=== PATIENT | female | born 1950 | race Hispanic/Latino ===

== ENCOUNTER → 2018-03-14 | Outpatient (CLI) | payer OTHER ==
[~2018-03-14] MED LIST: HYDR-4457 PO; LEVO50 PO
== END | disposition home or self-care (01) ==
LOC: RAH 09:53
DX: Z12.31 Encounter for screening mammogram for malignant neoplasm of breast (principal)
CPT/HCPCS: 77067

== ENCOUNTER 2018-06-13 06:27 | Inpatient (IN) | payer OTHER | END 2018-06-15 18:56 | disposition home health service (06) | LOC: DAHIP 06:27 → 4AH 12:02 | PROC: 0SRC0JZ Replacement of Right Knee Joint with Synthetic Substitute, Open Approach (ICD-10-PCS; principal; 2018-06-13 08:30) | DX: M17.11 Unilateral primary osteoarthritis, right knee (principal) ==

== ENCOUNTER → 2019-03-20 | Outpatient (CLI) | payer OTHER ==
[~2019-03-20] MED LIST changes: +ASPI-1012 PO; -LEVO50 PO; +LEVO75TA10 PO; +MONT10TA21 PO
== END | disposition home or self-care (01) ==
LOC: RAH 13:44
PROVIDERS: ATTEND Obstetrics & Gynecology
DX: Z12.31 Encounter for screening mammogram for malignant neoplasm of breast (principal)
CPT/HCPCS: 77067

== ENCOUNTER → 2019-08-16 | Outpatient (CLI) | payer OTHER | END | disposition home or self-care (01) | LOC: RAH 14:12 | PROVIDERS: ATTEND Family Medicine | DX: Z13.6 Encounter for screening for cardiovascular disorders (principal) | CPT/HCPCS: 75571 ==

== ENCOUNTER → 2020-03-20 | Outpatient (CLI) | payer OTHER | END | disposition home or self-care (01) | LOC: RAH 09:52 | PROVIDERS: ATTEND Obstetrics & Gynecology | DX: Z12.31 Encounter for screening mammogram for malignant neoplasm of breast (principal); N64.89 Other specified disorders of breast | CPT/HCPCS: 77067 ==

== ENCOUNTER → 2022-03-10 | Outpatient (CLI) | payer MEDICARE | END | disposition home or self-care (01) | LOC: RAH 10:26 | PROVIDERS: ATTEND Obstetrics & Gynecology | DX: Z12.31 Encounter for screening mammogram for malignant neoplasm of breast (principal) | CPT/HCPCS: 77067 ==

== ENCOUNTER → 2023-03-14 | Outpatient (CLI) | payer MEDICARE ==
[~2023-03-14] MED LIST changes: +MONT-46 PO; -MONT10TA21 PO
== END | disposition home or self-care (01) ==
LOC: RAH 15:38
PROVIDERS: ATTEND Obstetrics & Gynecology
DX: Z12.31 Encounter for screening mammogram for malignant neoplasm of breast (principal)
CPT/HCPCS: 77067

== ENCOUNTER 2023-04-21 11:22 | Observation (INO) | payer MEDICARE ==
[~2023-04-21] VITALS: Ht 154.9 cm; Wt 63.5 kg
[2023-04-21 12:00] LABS: BASOPHILS % (AUTO) 0.6 % (0.0-5.0); EOSINOPHILS # (AUTO) 3.56 K/uL (0.00-0.70); EOSINOPHILS % (AUTO) 22.5 % (0.0-8.0); IMMATURE GRANULOCYTE ABSOLUTE 0.09 K/uL (0-1); LYMPHOCYTES # (AUTO) 2.4 K/uL (1.0-4.8); MEAN CORPUSCULAR HEMOGLOBIN 30.8 pg (27.0-33.0); MEAN CORPUSCULAR VOLUME 90.7 fL (79-99); MONOCYTES # (AUTO) 0.9 K/uL (0.1-1.0); MONOCYTES % (AUTO) 5.7 % (3.0-13.0); NEUTROPHILS # (AUTO) 8.8 K/uL (1.8-7.7); NEUTROPHILS % (AUTO) 55.6 % (40.0-77.0); PLATELET COUNT (AUTO) 219 K/uL (130-400); RED BLOOD CELL COUNT(AUTO) 4.74 MIL/uL (4.00-5.50); RED CELL DISTRIBUTION WIDTH 13.8 % (11.0-15.5); WHITE BLOOD COUNT (AUTO) 15.9 K/uL (4.8-10.8)
[2023-04-21 12:12] LABS: CREATININE 0.9 mg/dL (0.5-1.5); POTASSIUM 3.4 mmol/L (3.5-5.1)
[2023-04-21 12:16] LABS: ALBUMIN 3.3 g/dL (3.5-5.0); BILIRUBIN,TOTAL 0.3 mg/dL (0.2-1.0); TOTAL PROTEIN, SERUM 7.2 g/dL (6.0-8.3)
[2023-04-21 14:32] LABS: ADD UA MICROSCOPIC YES; APPEARANCE,URINE CLEAR (CLEAR); BILIRUBIN,URINE NEGATIVE (NEGATIVE); COLOR,URINE LIGHT-YELLOW (YELLOW); GLUCOSE, URINE (UA) NEGATIVE (NEGATIVE); KETONES,URINE NEGATIVE (NEGATIVE); LEUKOCYTE ESTERASE ,URINE NEGATIVE Leu/uL (NEGATIVE); NITRATE,URINE NEGATIVE (NEGATIVE); OCCULT BLOOD,URINE NEGATIVE (NEGATIVE); PH,URINE 6.5 (5.0-8.0); PROTEIN,URINE NEGATIVE (NEGATIVE); UROBILINOGEN,URINE 0.2 mg/dL (0.2-1.0)
[2023-04-21 14:34] LABS: BACTERIA,URINE RARE /HPF (None Seen); MUCUS,URINE RARE LPF (None Seen); RBC,URINE 0-1 /HPF (0-1); SQUAMOUS EPITHELIAL CELL,UR FEW /HPF (0-2); YEAST,URINE BUDDING RARE /HPF (None Seen)
[2023-04-21] MEDS ORDERED: KCL 20 MEQ ERTAB PO ONE ×2 (14:59→15:02)
[2023-04-21] MEDS ORDERED: MAG/ALUM/SIMETH 30 ML UDCUP PO PRN (16:00)
[2023-04-21] MEDS ORDERED: GUAIFENESIN-DM 200/20 MG 10 ML PO PRN (16:00)
[2023-04-21] MEDS ORDERED: DIPHENHYDRAMINE HCL 25 MG CAPSULE PO PRN (16:00)
[2023-04-21] MEDS ORDERED: KCL 20 MEQ ERTAB PO PRN (16:00)
[2023-04-21] MEDS ORDERED: MAGNESIUM 2GM PREMIX 50ML 50 ML IV PRN (16:00)
[2023-04-21] MEDS ORDERED: POTASSIUM CHLORIDE 10% ELIXIR 20 MEQ/15 ML UDCUP PO PRN (16:00)
[2023-04-21] MEDS ORDERED: ACETAMINOPHEN 325 MG TAB PO PRN ×2 (16:00)
[2023-04-21] MEDS ORDERED: NITROGLYCERIN 0.4 MG SL TAB SL PRN (16:00)
[2023-04-21] MEDS ORDERED: POTASSIUM CHLORIDE 20MEQ/100ML 100 ML IV PRN (16:00)
[2023-04-21] MEDS ORDERED: HYDROMORPHONE 1 MG INJ IV PRN (16:00)
[2023-04-21] MEDS ORDERED: ONDANSETRON 4MG INJ IV PRN (16:00)
[2023-04-21] MEDS ORDERED: HYDROCODONE/ACETAMINOPHEN 5/325 MG TAB PO PRN ×2 (16:00)
[2023-04-21] MEDS ORDERED: DiphenhydrAMINE HCL 50 MG/ML VIAL IV PRN (16:00)
[2023-04-21] MEDS ORDERED: LACTULOSE 20 GM/30 ML UDCUP PO PRN (16:00)
[2023-04-21] MEDS: LACTATED RINGERS 1000ML 1,000 ML IV SCH ×2 (16:33→22:35)
[2023-04-21 20:00] VITALS: BP 154/73; PULSE 61; RESP 18
[2023-04-21] MEDS: ZOSYN 3.375GM+NS 50ML 50 ML IV SCH (20:59)
[2023-04-21] MEDS: PANTOPRAZOLE 40 MG/VIAL IVP SCH (20:59)
[2023-04-21 21:00] VITALS: O2SAT 97
[2023-04-21] MEDS ORDERED: SUCR1TAB2 PO (21:12)
[2023-04-21] MEDS ORDERED: FAMO20TA8 PO (21:12)
[2023-04-22] VITALS (7 sets, daily range): BP systolic 131–160; BP diastolic 64–87; PULSE 51–60; RESP 16–20; O2SAT 96
[2023-04-22] MEDS: LACTATED RINGERS 1000ML 1,000 ML IV SCH ×7 (00:23→20:21)
[2023-04-22 04:42] LABS: BASOPHILS % (AUTO) 0.8 % (0.0-5.0); EOSINOPHILS # (AUTO) 3.81 K/uL (0.00-0.70); EOSINOPHILS % (AUTO) 30.8 % (0.0-8.0); HEMATOCRIT 37.7 % (36-48); IMMATURE GRANULOCYTE ABSOLUTE 0.05 K/uL (0-1); LYMPHOCYTES # (AUTO) 2.3 K/uL (1.0-4.8); LYMPHOCYTES % (AUTO) 18.2 % (21.0-51.0); MEAN CORPUSCULAR HEMOGLOBIN 30.9 pg (27.0-33.0); MEAN CORPUSCULAR HGB CONC 34.2 g/dL (32.0-36.0); MEAN CORPUSCULAR VOLUME 90.4 fL (79-99); MONOCYTES # (AUTO) 0.9 K/uL (0.1-1.0); NEUTROPHILS # (AUTO) 5.3 K/uL (1.8-7.7); NEUTROPHILS % (AUTO) 42.8 % (40.0-77.0); PLATELET COUNT (AUTO) 201 K/uL (130-400); RED BLOOD CELL COUNT(AUTO) 4.17 MIL/uL (4.00-5.50); RED CELL DISTRIBUTION WIDTH 14.1 % (11.0-15.5); WHITE BLOOD COUNT (AUTO) 12.4 K/uL (4.8-10.8)
[2023-04-22 04:51] LABS: HEMOGLOBIN A1C 5.7 % (4.0-6.0)
[2023-04-22 04:55] LABS: INR < 0.93 (0.85-1.15); PROTHROMBIN TIME 10.7 SEC (9.6-11.6)
[2023-04-22] MEDS: ZOSYN 3.375GM+NS 50ML 50 ML IV SCH ×3 (04:55→20:14)
[2023-04-22 04:57] LABS: PARTIAL THROMBOPLASTIN TIME 29.3 SEC (26.3-35.5)
[2023-04-22 05:06] LABS: ALBUMIN 2.7 g/dL (3.5-5.0); BILIRUBIN,TOTAL 0.7 mg/dL (0.2-1.0); CREATININE 0.9 mg/dL (0.5-1.5); MAGNESIUM 2.5 mg/dL (1.80-2.40); PHOSPHORUS 3.8 mg/dL (2.5-4.9); POTASSIUM 3.9 mmol/L (3.5-5.1); THYROID STIMULATING HORMONE 5.04 uIU/mL (0.36-3.74)
[2023-04-22 05:11] LABS: % IRON SATURATION 44.1 % (22-44)
[2023-04-22 05:37] LABS: HIV 1&2 ANTIBODY Non-Reactive (Negative); HIV-1 p24 Antigen Non-Reactive (Negative)
[2023-04-22] MEDS: LEVOTHYROXINE 75 MCG TABLET PO SCH (05:55)
[2023-04-22] MEDS ORDERED: KCL 20 MEQ ERTAB PO SCH (09:00)
[2023-04-22] MEDS: MONTELUKAST SODIUM 10 MG TAB PO SCH (09:00)
[2023-04-22] MEDS: PANTOPRAZOLE 40 MG/VIAL IVP SCH ×2 (09:04→20:14)
[2023-04-23] VITALS: BP 134/72; PULSE 55; RESP 16
[2023-04-23] MEDS: LACTATED RINGERS 1000ML 1,000 ML IV SCH (02:31)
[2023-04-23 04:00] VITALS: BP 120/72; PULSE 50; RESP 18
[2023-04-23 04:57] LABS: BASOPHILS % (AUTO) 0.9 % (0.0-5.0); EOSINOPHILS # (AUTO) 4.19 K/uL (0.00-0.70); EOSINOPHILS % (AUTO) 38.2 % (0.0-8.0); HEMATOCRIT 36.9 % (36-48); IMMATURE GRANULOCYTE ABSOLUTE 0.02 K/uL (0-1); LYMPHOCYTES # (AUTO) 2.1 K/uL (1.0-4.8); LYMPHOCYTES % (AUTO) 18.7 % (21.0-51.0); MEAN CORPUSCULAR HEMOGLOBIN 30.4 pg (27.0-33.0); MEAN CORPUSCULAR HGB CONC 33.3 g/dL (32.0-36.0); MEAN CORPUSCULAR VOLUME 91.1 fL (79-99); MONOCYTES # (AUTO) 0.7 K/uL (0.1-1.0); MONOCYTES % (AUTO) 6.7 % (3.0-13.0); NEUTROPHILS # (AUTO) 3.9 K/uL (1.8-7.7); NEUTROPHILS % (AUTO) 35.3 % (40.0-77.0); PLATELET COUNT (AUTO) 173 K/uL (130-400); RED BLOOD CELL COUNT(AUTO) 4.05 MIL/uL (4.00-5.50); RED CELL DISTRIBUTION WIDTH 14.1 % (11.0-15.5)
[2023-04-23] MEDS: ZOSYN 3.375GM+NS 50ML 50 ML IV SCH (05:00)
[2023-04-23 05:32] LABS: ALBUMIN 2.5 g/dL (3.5-5.0); BILIRUBIN,TOTAL 0.7 mg/dL (0.2-1.0); CREATININE 0.9 mg/dL (0.5-1.5); MAGNESIUM 1.8 mg/dL (1.80-2.40); POTASSIUM 3.9 mmol/L (3.5-5.1); TOTAL PROTEIN, SERUM 5.7 g/dL (6.0-8.3)
[2023-04-23] MEDS: LEVOTHYROXINE 75 MCG TABLET PO SCH (07:31)
[2023-04-23 07:34] VITALS: BP 133/76; PULSE 53; RESP 18
[2023-04-23] MEDS: MONTELUKAST SODIUM 10 MG TAB PO SCH (09:00)
[2023-04-23] MEDS: PANTOPRAZOLE 40 MG/VIAL IVP SCH (09:00)
[2023-04-23 09:50] VITALS: O2SAT 99
== END 2023-04-23 12:20 | disposition home or self-care (01) ==
LOC: EDH 11:22 → EDHIP 15:55 → 3BH 16:32
PROVIDERS: ADMIT Internal Medicine; ATTEND Internal Medicine
DX: K21.9 Gastro-esophageal reflux disease without esophagitis (principal); K22.10 Ulcer of esophagus without bleeding; E44.1 Mild protein-calorie malnutrition; I44.4 Left anterior fascicular block; K85.90 Acute pancreatitis without necrosis or infection, unspecified; E03.9 Hypothyroidism, unspecified; Z68.26 Body mass index [BMI] 26.0-26.9, adult; Z90.49 Acquired absence of other specified parts of digestive tract; Z96.659 Presence of unspecified artificial knee joint
CPT/HCPCS: 96361 ×4; 96365; 96366 ×4; 96375; 99284; 84484; 84478; 80053 ×3; 83690 ×2; 85025 ×3; 87040 ×2; 81001; 36415 ×3; 76700; 93005; 96376; 83036; 84443; 83540; 83550; 83735 ×2; 84100; 85610; 85730; 83605; 86701; 87390; 74150; G0378 ×44; J7120 ×3; J2543 ×5; C9113 ×3

== ENCOUNTER → 2024-04-02 | Outpatient (CLI) | payer MEDICARE ==
[~2024-04-02] MED LIST changes: +FAMO20TA8 PO; +SUCR1TAB2 PO
--- NOTE | 2024-04-02 11:15 | HMCIMG ---
MAMMO SCREENING BILATERAL HISTORY: Screening mammogram. COMPARISON: 03/14/2023 TECHNIQUE: Bilateral screening mammogram with CAD was performed with craniocaudal and mediolateral oblique projections. FINDINGS: There are scattered areas of fibroglandular density. There is no evidence of a dominant mass, or suspicious microcalcification. There is no evidence of nipple retraction or skin thickening. IMPRESSION: 1. Stable mammogram. Patient was entered into a reminder system with a target due date for their next mammogram. BI-RADS: CATEGORY 2: BENIGN FINDINGS Recommend monthly self breast exam as well as annual clinical examination. A negative x-ray should not delay biopsy if a dominant or clinically suspicious mass is present, since 8-10% of cancers are not identified by mammography. Dense breasts particularly, may obscure an underlying neoplasm. Some of these may be detected clinically and therefore, clinical examination is an essential part of breast evaluation.
== END | disposition home or self-care (01) ==
LOC: RAH 10:36
PROVIDERS: ATTEND Obstetrics & Gynecology
DX: Z12.31 Encounter for screening mammogram for malignant neoplasm of breast (principal); R92.323 Mammographic fibroglandular density, bilateral breasts
CPT/HCPCS: 77067

== ENCOUNTER 2024-09-09 16:05 | Emergency (ER) | payer MEDICARE, OTHER ==
[~2024-09-09] VITALS: Ht 154.9 cm; Wt 67.1 kg
[2024-09-09] MEDS: ondanSETRON 4MG TABLET PO ONE (16:48)
[2024-09-09] MEDS: morPHINE 2 MG SYG IM ONE (16:49)
--- NOTE | 2024-09-09 17:18 | HMCIMG ---
RIGHT ELBOW RADIOGRAPHS - 3 VIEWS INDICATION: Pain COMPARISON: None FINDINGS/IMPRESSION: AP, lateral, and oblique views. Posterior right elbow fracture dislocation injury, including radial head/neck fracture and displaced comminuted fracture involving the lateral humeral epicondyles with a few miniscule joint fragments.
--- NOTE | 2024-09-09 17:19 | HMCIMG ---
NASAL BONES RADIOGRAPHS - 3 VIEWS INDICATION: Fall COMPARISON: None FINDINGS: No acute fracture or dislocation noted. Nasal septum is midline. Orbital dubose are symmetric and intact. Visible paranasal sinuses and mastoid air cells are clear. IMPRESSION: No fracture or dislocation noted.
--- NOTE | 2024-09-09 17:23 | HMCIMG ---
CT HEAD WITHOUT CONTRAST INDICATION: Fall TECHNIQUE: Noncontrast axial helical CT images from the vertex through the skull base using 5 mm slice thickness without contrast material. Coronal and sagittal reconstructions were also included. Dose reduction techniques was used using integrated, automated and adaptive dose reduction exposure control. CT was performed with one or more of the following dose reduction techniques: Automated exposure control, adjustment of the mA and/or kV according to patient size, or use of iterative reconstruction technique. COMPARISON: None FINDINGS: Very small anterior right frontal scalp hematoma. Scattered and coalescent subcortical and periventricular white matter low attenuating areas likely represent residual of chronic small vessel arteriopathy and/or remote vascular insult. Generalized mild cerebral cortical atrophy is present.. No evidence for abnormal extra-axial fluid collections or masses. The ventricles and sulci are normal in size and configuration. No evidence for intracranial parenchymal, epidural, or subdural hemorrhage, mass effect or midline shift. The mars-white matter differentiation is well preserved. No secondary evidence to suggest acute ischemia. Mild calcific plaque is present along the dubose of the cavernous segments of both internal carotid arteries. The brainstem and cerebellum appear normal. The visualized orbits appear unremarkable. The visible paranasal sinuses and mastoid air cells are clear. The calvarium appears normal. IMPRESSION: Very small anterior right frontal scalp hematoma. Chronic white matter ischemic changes, mild brain atrophy, and arteriosclerotic disease as described, without acute component.
--- NOTE | 2024-09-09 17:56 | ERN ---
General Chief Complaint: Mechanical Fall Stated Complaint: FALL, ELBOW PAIN Time Seen by MD: 16:07 Source: patient History of Present Illness Initial Comments Patient is a 73-year-old female coming in after she had a fall earlier today. She states he was bumped herself in the head and elbow.She states she can not extend per upper extremity secondary to she was a excruciating elbow pain she Allergies: Coded Allergies: No Known Drug Allergies (Unverified Allergy, Unknown, 11/21/14) Home Meds Active Scripts Hydrocodone/Acetaminophen ([place] 5-325 Tablet) 1 Each Tablet, 1-2 EACH PO Q6HPRN PRN for pain, #60 TAB Prov:MADONNA MORA MD 06/15/18 Aspirin (ASPIRIN) 325 Mg Tablet, 325 MG PO BID, #40 TAB Prov:MADONNA MORA MD 06/15/18 Reported Medications Famotidine (Famotidine) 20 Mg Tablet, 20 MG PO BID, TAB 04/21/23 Sucralfate (Sucralfate) 1 Gram Tablet, 1 GM PO QID, TAB 04/21/23 Montelukast Sodium (Singulair 10Mg) 10 Mg Tab, 10 MG PO QDP, TAB 06/12/18 Levothyroxine Sodium (Levothyroxine Sodium) 75 Mcg Tablet, 75 MCG PO ACBKFST, TAB 06/12/18 Past Medical History Past Medical History: GERD, Hypothyroid Medical History Other: ESOPHAGITIS Past Surgical History: Cholecystectomy, Surgical History Other: KNEE REPLACEMENT, HERNIA REPAIR ROS Dictation CONSTITUTIONAL: No chills, no fever, no weakness, no diaphoresis, no malaise. HEAD/FACE: No signs of trauma. EENT: No eye pain, no blurred vision, no tearing, no double vision, no ear pain, no ear discharge, no nose pain, no nasal congestion, no throat pain, no throat swelling, no mouth pain. RESPIRATORY: No cough, no orthopnea, no SOB, no stridor, no wheezing. CARDIOVASCULAR: No chest pain, no edema, no palpitations, no syncope. GASTROINTESTINAL/ABDOMINAL: No abdominal pain, no constipation, no diarrhea, no nausea, no vomiting. GENITOURINARY: No abnormal discharge, no dysuria, no frequent urination, no hematuria. No complaints of pain in the genitals. MUSCULOSKELETAL: No back pain, no gout, joint pain, joint swelling, no muscle pain, no muscle stiffness, no neck pain. INTEGUMENTARY: No change in color, no change in hair/nails, no dryness, no lesion, no lumps, no rash. NEUROLOGICAL/PSYCH: No anxiety, not depressed, no emotional problem, no headache, no numbness, no pre-existing deficit, no history of seizures, no tremors, no weakness. HEMATOLOGIC/LYMPHATIC: Not anemic, no history of blood clots, no apparent bleeding, no bruising, glands not swollen. All Systems Negative, Except as Noted. Results Laboratory and Microbiology Labs Reviewed?: Yes EKG/XRAY/US/CT/MRI X-RAY Comment IMAGING REPORT Signed PATIENT: IDALIA GARCIA MR#: [id number] : 1950 SEX: F AGE: 73 LOCATION: [facility] ORDER 15 STATUS: [facility] REPORT#: [id number] SERVICE 13 REASON: fall ORDERING PHYSICIAN: NEEL VO MD PROCEDURE: NASAL 3VW - NASAL BONES COMP 3+VWS NASAL BONES RADIOGRAPHS - 3 VIEWS INDICATION: Fall COMPARISON: None FINDINGS: No acute fracture or dislocation noted. Nasal septum is midline. Orbital dubose are symmetric and intact. Visible paranasal sinuses and mastoid air cells are clear. IMPRESSION: No fracture or dislocation noted. DICTATED BY: JOSELYN EDMONDS MD DATE: 09/09/241715 ELECTRONICALLY SIGNED BY: JOSELYN EDMONDS MD DATE: 09/09/241718 [address] [id number] IMAGING REPORT Signed PATIENT: IDALIA GARCIA MR#: [id number] : 1950 SEX: F AGE: 73 LOCATION: [facility] ORDER 15 STATUS: [facility] REPORT#: [id number] SERVICE 13 REASON: fall ORDERING PHYSICIAN: NEEL VO MD PROCEDURE: ELB3VW RT - ELBOW COMP 3+VWS RT RIGHT ELBOW RADIOGRAPHS - 3 VIEWS INDICATION: Pain COMPARISON: None FINDINGS/IMPRESSION: AP, lateral, and oblique views. Posterior right elbow fracture dislocation injury, including radial head/neck fracture and displaced comminuted fracture involving the lateral humeral epicondyles with a few miniscule joint fragments. DICTATED BY: JOSELYN EDMONDS MD DATE: 09/09/241715 ELECTRONICALLY SIGNED BY: JOSELYN EDMONDS MD DATE: 09/09/241717 CT Scan Comment [address] [place] [id number] IMAGING REPORT Signed PATIENT: IDALIA GARCIA MR#: [id number] : 1950 SEX: F AGE: 73 LOCATION: [facility] ORDER 15 STATUS: [facility] REPORT#: [id number] SERVICE 13 REASON: fall ORDERING PHYSICIAN: NEEL VO MD PROCEDURE: HEAD WO - CT HEAD/BRAIN W/O CONTRAST CT HEAD WITHOUT CONTRAST INDICATION: Fall TECHNIQUE: Noncontrast axial helical CT images from the vertex through the skull base using 5 mm slice thickness without contrast material. Coronal and sagittal reconstructions were also included. Dose reduction techniques was used using integrated, automated and adaptive dose reduction exposure control. CT was performed with one or more of the following dose reduction techniques: Automated exposure control, adjustment of the mA and/or kV according to patient size, or use of iterative reconstruction technique. COMPARISON: None FINDINGS: Very small anterior right frontal scalp hematoma. Scattered and coalescent subcortical and periventricular white matter low attenuating areas likely represent residual of chronic small vessel arteriopathy and/or remote vascular insult. Generalized mild cerebral cortical atrophy is present.. No evidence for abnormal extra-axial fluid collections or masses. The ventricles and sulci are normal in size and configuration. No evidence for intracranial parenchymal, epidural, or subdural hemorrhage, mass effect or midline shift. The mars-white matter differentiation is well preserved. No secondary evidence to suggest acute ischemia. Mild calcific plaque is present along the dubose of the cavernous segments of both internal carotid arteries. The brainstem and cerebellum appear normal. The visualized orbits appear unremarkable. The visible paranasal sinuses and mastoid air cells are clear. The calvarium appears normal. IMPRESSION: Very small anterior right frontal scalp hematoma. Chronic white matter ischemic changes, mild brain atrophy, and arteriosclerotic disease as described, without acute component. DICTATED BY: JOSELYN EDMONDS MD DATE: 09/09/241720 ELECTRONICALLY SIGNED BY: JOSELYN EDMONDS MD DATE: 09/09/241722 [facility] MDM: Differential diagnosis: ELBOW DISLOCATION, ELBOW FRACTURE, Rationale: Tests considered and ordered secondary to shared decision making include: Previous outside records reviewed: Old ER visits. PATIENT IS A 73-YEAR-OLD FEMALE COMING IN AFTER SHE HAD A FALL. PATIENT STATES THAT SHE SLIPPED FELL DOWN HITTING HIMSELF IN THE RIGHT ELBOW RIGHT KNEE AND FACE. X-RAY DISCLOSE ELBOW DISLOCATION WITH FRACTURE. ELBOWS REDUCED USING TRACTION COUNTER TRACTION WITH MORPHINE IN HIS PAIN MED. PATIENT TOLERATED PROCEDURE WELL. CASE WAS DISCUSSED WITH THE DR. Mora mgmt specialist on- call. Per his request patient had a CT performed of the right elbow and patient will be discharged to follow up as outpatient for possible surgical evaluation. Sling will be placed. ED Course Orders Procedure Category Date Status Time Ct Head/Brain W/O CT 09/09/24 Resulted Contrast 16:14 Elbow Comp 3+Vws Rt RAD 09/09/24 Resulted 16:14 Nasal Bones Comp 3+Vws RAD 09/09/24 Resulted 16:14 Ondansetron 4mg PHA 09/09/24 Complete Tablet (Zofran 4mg 17:00 Morphine 2mg Syg PHA 09/09/24 Complete (Morphine 2mg Syg) 17:00 Elbow 2vws Rt RAD 09/09/24 Resulted 17:28 Ct Upper Ext W/O CT 09/09/24 Logged Contrast 18:37 Knee 3vws Rt RAD 09/09/24 Taken 18:43 Gabapentin 100 Mg Cap PHA 09/09/24 Complete (Neurontin 100 Mg 18:43 Current Medications Medications (Trade) Dose Ordered Sig/Ofelia Route PRN Reason Start Time Stop Time Status Last Admin Dose Admin Gabapentin (NEURontin 100 mg CAP) 100 mg ONCE STAT PO 09/09/24 18:43 09/09/24 18:45 DC 09/09/24 18:47 Morphine Sulfate (morPHINE 2MG SYG) 2 mg ONCE ONCE IM 09/09/24 17:00 09/09/24 17:01 DC 09/09/24 16:49 Ondansetron HCl (zoFRAN 4MG TABLET) 4 mg ONCE ONCE PO 09/09/24 17:00 09/09/24 17:01 DC 09/09/24 16:48 Vital Signs Date Time Temp Pulse Resp B/P (MAP) Pulse Ox O2 Delivery O2 Flow Rate FiO2 09/09/24 16:11 97.9 61 20 161/78 96 Room Air 0 Procedure Dictation Right elbow dislocation-traction counter traction reduction successful pain meds were given morphine. DX & DISP Disposition: Discharge Departure Impression: Primary Impression: Elbow fracture Additional Impression: Dislocation of right elbow Condition: Stable Scripts Naproxen (Naproxen) 375 Mg Tablet.dr 375 MG PO BID for 7 Days, #14 TAB Prov: NEEL VO MD 09/09/24 Gabapentin (Gabapentin) 100 Mg Capsule 1 CAP PO BID for 7 Days, #14 CAP 0 Refills Prov: NEEL VO MD 09/09/24 Additional Instructions: FOLLOW-UP WITH PRIMARY CARE PROVIDER IN 1 TO 2 DAYS. TAKE MEDICATIONS DIRECTED HERE IN THE EMERGENCY ROOM. OKAY TO CONTINUE HOME MEDICATIONS UNLESS OTHERWISE DISCUSSED DURING YOUR VISIT IN THE EMERGENCY ROOM TODAY. RETURN TO YOUR NEAREST EMERGENCY ROOM IF SYMPTOMS WORSEN OR IF THERE IS NO IMPROVEMENT. CALL 911 IF YOU NEED IMMEDIATE ASSISTANCE. TAKE TYLENOL [id number] NEEDED AND IF NO CONTRAINDICATIONS ARE PRESENT. INCREASE ORAL HYDRATION. A WOUND CULTURE OR URINE CULTURE WAS ORDERED HERE IN THE EMERGENCY ROOM DEPARTMENT PLEASE FOLLOW-UP WITH PRIMARY CARE PROVIDER AND ADVISE THEM TO GET REPEAT PORTS FROM OUR FACILITY. IF YOU HAD ANY HAIR WRAP/SPLINTS THAT WERE APPLIED HERE, PLEASE DO NOT REMOVE THEM UNTIL YOU SEE YOUR PRIMARY CARE OR SPECIALTY. Referrals: Referrals: SELF,REFERRAL (PCP) MADONNA MORA MD, LUIS A MD Time of Disposition: 18:58 NEEL VO MD Sep 09, 2024 17:56
--- NOTE | 2024-09-09 18:25 | HMCIMG ---
RIGHT ELBOW RADIOGRAPHS - 2 VIEWS INDICATION: Postreduction imaging. COMPARISON: Right elbow radiographs performed earlier on the same date. FINDINGS: AP, lateral views. Appropriate anatomic alignment of the right elbow joint. Radial head/neck fracture deformity and several anterolateral right elbow joint ossific fragments noted. Lateral humeral epicondyle appears intact on this study as opposed to the comparison study.
[2024-09-09] MEDS: GABApentin 100 MG CAPSULE PO STA (18:47)
[2024-09-09] MEDS ORDERED: NAPR-1505 PO (19:00)
[2024-09-09] MEDS ORDERED: GABA-529 PO (19:00)
[2024-09-09 19:13] VITALS: BP 163/84; PULSE 65; RESP 19; TEMP 98.5; O2SAT 100
--- NOTE | 2024-09-09 20:40 | HMCIMG ---
Exam Type: CT UPPER EXT W/O CONTRAST Clinical Information: RIGHT ELBOW FRACTURE Comparison: None Findings: Comminuted intra-articular fracture of the radial head with anterior rotation of the smaller radial head fracture fragment. Hemarthrosis. No other fractures are seen. IMPRESSION: Intra-articular proximal radial fracture.
--- NOTE | 2024-09-09 20:48 | HMCIMG ---
Exam Type: KNEE 3VWS RT Clinical Information: FALL Comparison: None Findings: Routine views of the knee are without evidence of fracture, dislocation, arthritic, or inflammatory change. There is status post knee replacement with adequate visualization and alignment of bony and hardware elements. No complications are seen. There are vascular calcifications. The joint space is well maintained and there is no effusion. IMPRESSION: Status post knee replacement.
== END 2024-09-09 20:00 | disposition home or self-care (01) ==
LOC: EDH 16:05
DX: S42.431A Displaced fracture (avulsion) of lateral epicondyle of right humerus, initial encounter for closed fracture (principal); S52.121A Displaced fracture of head of right radius, initial encounter for closed fracture; E03.9 Hypothyroidism, unspecified; K21.9 Gastro-esophageal reflux disease without esophagitis; Z79.82 Long term (current) use of aspirin; Z90.49 Acquired absence of other specified parts of digestive tract; Z96.659 Presence of unspecified artificial knee joint; Z98.890 Other specified postprocedural states; W18.39XA Other fall on same level, initial encounter; Y93.89 Activity, other specified; Y92.89 Other specified places as the place of occurrence of the external cause; Y99.8 Other external cause status
CPT/HCPCS: 24565; 99285; 73080; 73562; 70160; 70450; 73200; 73070; 96372; Q0162; J2270; 24600

== ENCOUNTER 2024-09-24 06:41 | Day surgery (SDC) | payer MEDICARE ==
[2024-09-19 10:48] LABS: BASOPHILS # (AUTO) 0.07 K/uL (0.00-0.20); BASOPHILS % (AUTO) 0.7 % (0.0-5.0); EOSINOPHILS # (AUTO) 0.79 K/uL (0.00-0.70); EOSINOPHILS % (AUTO) 8.2 % (0.0-8.0); HEMATOCRIT 39.1 % (36-48); IMMATURE GRANULOCYTE ABSOLUTE 0.04 K/uL (0-1); LYMPHOCYTES % (AUTO) 20.6 % (21.0-51.0); MEAN CORPUSCULAR HEMOGLOBIN 31.3 pg (27.0-33.0); MEAN CORPUSCULAR HGB CONC 33.5 g/dL (32.0-36.0); MEAN CORPUSCULAR VOLUME 93.3 fL (79-99); MONOCYTES # (AUTO) 0.7 K/uL (0.1-1.0); MONOCYTES % (AUTO) 7.7 % (3.0-13.0); NEUTROPHILS % (AUTO) 62.4 % (40.0-77.0); PLATELET COUNT (AUTO) 250 K/uL (130-400); RED BLOOD CELL COUNT(AUTO) 4.19 MIL/uL (4.00-5.50); RED CELL DISTRIBUTION WIDTH 15.1 % (11.0-15.5); WHITE BLOOD COUNT (AUTO) 9.7 K/uL (4.8-10.8)
[2024-09-19 10:57] LABS: CREATININE 0.8 mg/dL (0.5-1.0); POTASSIUM 3.7 mmol/L (3.5-5.1)
[2024-09-19 11:14] VITALS: BP 168/70; PULSE 76; RESP 18; TEMP 98
[2024-09-19 11:41] LABS: INR <= 0.93 (0.85-1.15); PROTHROMBIN TIME 9.8 SEC (9.6-11.6)
[2024-09-19 11:42] LABS: PARTIAL THROMBOPLASTIN TIME 27.8 SEC (26.3-35.5)
--- NOTE | 2024-09-19 12:53 | EKG ---
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
[2024-09-24] VITALS (19 sets, daily range): BP systolic 136–165; BP diastolic 57–86; PULSE 64–90; RESP 13–19; TEMP 97.3–97.5
[~2024-09-24] VITALS: Ht 154.9 cm; Wt 70.7 kg
[~2024-09-24 06:41] MED LIST changes: -ASPI-1012 PO; +HYDR-4060 PO; -HYDR-4457 PO; -MONT-46 PO; -SUCR1TAB2 PO; +TYLENOL ARTHRITIS PO
[2024-09-24] MEDS ORDERED: acetaMINOPHEN 100 ML ONE (07:05)
[2024-09-24] MEDS ORDERED: FAMOTIDINE 20MG VIAL IV ONE (07:06)
[2024-09-24] MEDS ORDERED: ROPivacaine 0.5% 5MG/ML 30ML ONE (07:08)
[2024-09-24] MEDS ORDERED: ketaMINE 50MG/ML SYRINGE 50 MG/ML DISP.SYRIN ONE (07:09)
[2024-09-24] MEDS ORDERED: FENTanyl CITRate PF 50 MCG/1 ML 2ML VIAL ONE (07:16)
[2024-09-24] MEDS ORDERED: rocuRONium bROMide 10MG/1ML 5ML VL ONE (07:16)
[2024-09-24] MEDS ORDERED: proPOFol 10 MG/ML 20ML VIAL IV ONE (07:16)
[2024-09-24] MEDS ORDERED: LIDOCAINE PF 100MG/5ML (2%) SYRINGE 5ML ONE (07:16)
[2024-09-24] MEDS: LACTATED RINGERS 1000ML 1,000 ML IV ONE (07:44)
[2024-09-24] MEDS: ceFAZolin SODIUM 1 GM VIAL IRRIG ONE (08:00)
[2024-09-24] MEDS: ceFAZolin SODIUM 2 GM VIAL ONE (08:02)
[2024-09-24] MEDS ORDERED: dexaMETHasone SOD PHOSPHATE 10MG/ML 1ML VIAL ONE (08:14)
[2024-09-24] MEDS ORDERED: ondanSETRON 4MG INJ ONE (08:14)
[2024-09-24] MEDS ORDERED: phenylEPHRINE HCL 10 MG/ML 1ML VIAL IV ONE (08:25)
[2024-09-24] MEDS ORDERED: GLYCOPYRROLATE 0.2 MG/ML 5 ML VIAL ONE (08:53)
[2024-09-24] MEDS ORDERED: NEOSTIGMINE METHYLSULFATE 1MG/ML IV ONE (08:54)
[2024-09-24] MEDS: FENTanyl CITRate PF 50 MCG/1 ML 2ML VIAL ONE (11:36)
[2024-09-24] MEDS ORDERED: CEPH500B PO (11:44)
[2024-09-24] MEDS ORDERED: NAPR-1192 PO (11:44)
--- NOTE | 2024-09-24 11:52 | OP ---
Operative Note: DATE OF PROCEDURE: 09/24/24 SURGEON: MADONNA RIVAS MD SYSTEMS SECURITY ANALYST: [Tita Smith CFA] ANESTHESIA: [General anesthesia plus regional block] ANESTHESIOLOGIST/SWEEP MOLDER: [Julieta Huerta CRNA] PREOPERATIVE DIAGNOSIS: [Right elbow comminuted radial head fracture, history of elbow dislocation post reduction.] POSTOPERATIVE DIAGNOSIS: [Right elbow recurrent dislocation, comminuted radial head fracture] SYNOPSIS: [Biomet radial head plate, right.] PROCEDURE: [Open reduction internal fixation of right radial head fracture, reduction of posterolateral elbow dislocation, placement of long-arm splint] ESTIMATED BLOOD LOSS: [50 mL] INDICATIONS: [The patient is a 73-year-old female with history of a fall two weeks ago in which she sustained a posterior lateral dislocation of the elbow with a radial head fracture. The patient was treated in the emergency room with a closed reduction and placed in a splint. The patient was then switched to a sling of the x-rays reveal no abnormalities and because of the swelling it was decided to wait until this time for fixation of the fracture. The patient under stood the need for the procedure, risks, benefits and possible complications and agreed to sign the consent form] DESCRIPTION OF PROCEDURE: [After adequate general anesthesia was achieved the patient's was placed in the operating table an arm table was placed to her right side. She was removed from the sling and initially x-rays were taken with the use fluoroscopy we noticed that the patient had a recurrent dislocation of the elbow. This was manually reduced with counter traction with no problem. We pr oceeded then to prep and drape the right upper extremity in the usual manner previous placement of the tourniquet in the proximal arm. The extremity was elevated and exsanguinated with an Esmarch bandage and the tourniquet was inflated to 250 mmHg removing the Esmarch band. X-rays were taken again and the elbow was noted again to be dislocated and we proceeded to identify the ana paula dmarks after another reduction was done and then we proceeded to make an incision in the lateral aspect of the elbow in a curvilinear fashion following the distal lateral aspect of the humerus going through the subcutaneous tissue. Then we proceeded to open the interval between the anterior and posterior compartments of the humerus exposing the lateral epicondyle which was noted to be completely devoid of soft tissue which resulted from the dislocation. We proceeded then to once again try to reduce the elbow but it was a three. Stable secondary to the fracture of the radius which was comminuted. We proceeded to make an incision in the fascia of the extensors of the forearm especially of the brachioradialis which was then extended for about 5 cm distally we proceeded to open the fascia and muscle fibers of the brachioradialis finding the capsule of the radius head which was opened longitudinally entering into the elbow joint where a large hemarthrosis was suctioned. The radial head was easily identified and we noted that there were a proximally 55 % of the head intact and we found that there were two fragments of bone one in the posterior aspect of the elbow and one in the medial aspect of the radial head which were retracted. the posterior fragment consisted of a larger piece of the head of the radius that fitted very nicely in the remaining head filling approximately 35% of the c ircumference of the radius and then the other 10% was feeling the other fragment that was present and completed the shape of the radius. With the use of a 1.5 drill we proceeded to drill two holes in the border of the larger fragment into the remaining radial head and two cortical screws were placed, 2.5 mm diameter, that were successful in obtain an adequate reduction of the fragment. Then the remaining fragment was easily keyed into the defect present still fitting adequately restoring the shape of the radial head. We proceeded to secure this fragment with a small pin. Then we proceeded to use the Biomet radial plates and we used a buttress plate that fit perfectly around the two bone fragments and fit perfectly against the neck of the radius and proceeded then to secure this plate using it as a buttress to hold the pieces adequately in place applying cortical and locking screws distally and one proximally to secure the the smaller fragment against the rest of the radial head. The reduction was noted to be very stable and the x-rays were taken noticing that we had adequate position of the screws and the reduction of the fracture. We then proceeded to reduce the radiocapitellar joint and then we tested the range of motion of the elbow noticing that the patient had adequately reduced elbow in flexion but in extension the elbow tender to sublux posteriorly. We then apply an anchor in the bare bone of the lateral epicondyle at the insertion of the lateral ligaments and after the anchor was applied one of the sutures was then passed through the posterior muscle complex and the other suture passed through the anterior muscle complex and once this was achieved we proceeded to reapproximate both ends secure in the attachment of the tissues to this barebone. Then we proceeded to reapproximate the round ligament covering the radial head with the use of Ethibond sutures noticing that the pain she had adequate pronation supination without any impingement or any grinding present. The tourniquet was then deflated minimal bleeders were cauterized and we proceeded to continue with the closure with reapproximation in the fascia of the carpi radialis and proximally the fascia of the anterior and posterior compartments of the distal humerus. We tested the elbow with fluoroscopy noticing that the patient had a stable well-reduced elbow from approximately minus 60 noticing that further extension we will start sublux the joint. We proceeded then to close the subcutaneous tissue with 2-0 Monocryl inverted stitches followed by closure of the skin with 3-0 Monocryl subcuticularly. Dermabond was applied to cover the the wound incision and a non adhering pad was then applied with op-site. A 4 in plaster of Shilpa posterior splint was then made in the back table and applied previous application of cast padding to the hand forearm and arm and after application of the splint we proceeded to secured with an Carl bandage and then we held in position of 90� of flexion at this time new fluoroscopy x-rays taken noticed in the there was an excellent reduction of the joint. Once the splint dried the patient was transferred to hospital bed and then taken to recovery room for follow-up by anesthesia after being awakened and extubated. There were no complications in the procedure.] MADONNA RIVAS MD Sep 24, 2024 11:51
[2024-09-24] MEDS: IpraTROPium/alBUTERol SULFATE 3 ML SOLUTION IH ONE (12:28)
--- NOTE | 2024-09-24 16:02 | HMCIMG ---
ELBOW COMP 3+VWS RT HISTORY: ORIF COMPARISON: None TECHNIQUE: Fluoroscopic images were obtained. FINDINGS: Please see procedure report for referring physician. IMPRESSION: 1. Findings as described above.
== END 2024-09-24 13:40 | disposition home or self-care (01) ==
LOC: DAH 06:41
PROVIDERS: ATTEND Orthopaedic Surgery
DX: S52.121A Displaced fracture of head of right radius, initial encounter for closed fracture (principal); M24.421 Recurrent dislocation, right elbow; J45.909 Unspecified asthma, uncomplicated; E03.9 Hypothyroidism, unspecified; E78.5 Hyperlipidemia, unspecified; M19.90 Unspecified osteoarthritis, unspecified site; K76.0 Fatty (change of) liver, not elsewhere classified; Z98.890 Other specified postprocedural states; Z96.651 Presence of right artificial knee joint; Z79.899 Other long term (current) drug therapy; Z98.891 History of uterine scar from previous surgery; Z90.710 Acquired absence of both cervix and uterus; W01.0XXA Fall on same level from slipping, tripping and stumbling without subsequent striking against object, initial encounter; Y93.89 Activity, other specified; Y92.89 Other specified places as the place of occurrence of the external cause; Y99.8 Other external cause status
CPT/HCPCS: 36415; 73080; 80048; 85025; 85610; 85730; 93005; 94640; J0690; J1100; J2003; J2371; J2405; J2704; J2710; J2795; J3010; J3490; J7030; J7120; A4213; A4215; A4216; A4221; A4222; A4223; A4649; A4663; A4930; A5120; A6223; C1713; C1776

== ENCOUNTER → 2025-05-01 | Outpatient (CLI) | payer MEDICARE ==
--- NOTE | 2025-05-12 15:14 | HMCIMG ---
CLINICAL INDICATION: Asymptomatic menopausal state COMPARISON: Not reported TECHNIQUE: Bone densitometry is performed of the lumbar spine and left hip. FINDINGS: Total BMD of lumbar spine is 0.853 g/cm2 with a T-score of -1.8 and Z-score is 0.5. Total BMD of left hip is 0.701 g/cm2 with a T-score of -1.9 and Z-score is -0.3. FRAX SCORE: The 10 year fracture risk for a major osteoporotic fracture and hip fracture 7.6% IMPRESSION: 1. Osteopenia of the lumbar spine and left hip 2. I would recommend follow-up in 13 months World Health Organization criteria for BMD interpretation classify patients as Normal (T-score at or above -1.0), Osteopenic (T-score between -1.0 and -2.5), or Osteoporotic (T-score at or below -2.5). FRAX SCORE: A. All treatment decisions require clinical judgment and consideration of individual patient factors, including patient preferences, comorbidities, previous drug use, risk factors not captured in the FRAX model (e.g., frailty, falls, vitamin D deficiency, increased bone turnover, interval significant decline in bone density) and possible wwzdz-vb-kbod-estimation of fracture risk by FRAX. B. In addition, the NOF Guide recommends that FDA-approved medical therapies be considered in postmenopausal women and men age greater than or equal to 50 years with a: i. Hip or vertebral (clinical or morphometric) fracture. ii. T-score of less than or equal to -2.5 at the spine or hip. iii. Ten-year fracture probability by FRAX of greater than or equal to 3% for hip fracture of greater than or equal to 20% for major osteoporotic fracture.
== END | disposition home or self-care (01) ==
LOC: RAH 10:48
PROVIDERS: ATTEND Family Medicine
DX: M85.89 Other specified disorders of bone density and structure, multiple sites (principal); Z78.0 Asymptomatic menopausal state
CPT/HCPCS: 77080